=== PATIENT | female | born 1980 | race Caucasian/White ===

== ENCOUNTER → 2018-04-05 15:45 | Outpatient (CLI) | payer OTHER, SELFPAY ==
[2018-04-11 11:32] LABS: HPV APTIMA, High Risk Negative (Negative)
== END ==
PROVIDERS: Visit Provider Obstetrics & Gynecology
DX: Z12.4 Encounter for screening for malignant neoplasm of cervix (principal)
CPT/HCPCS: 88175; G0145

== ENCOUNTER → 2019-04-11 14:25 | Outpatient (CLI) | payer OTHER, SELFPAY ==
[2015-03-23 13:20] VITALS: BMI 31.0
[2019-04-17 13:41] LABS: HPV APTIMA, High Risk Negative (Negative)
== END ==
PROVIDERS: Visit Provider Obstetrics & Gynecology
DX: Z12.4 Encounter for screening for malignant neoplasm of cervix (principal)
CPT/HCPCS: 87624; 88175; G0145

== ENCOUNTER → 2019-04-18 09:33 | Outpatient (CLI) | payer OTHER, SELFPAY ==
[2015-03-23 13:20] VITALS: BMI 31.0
[2019-04-18 10:15] LABS: Hemoglobin A1c 6.5 % (4.2-6.3)
[2019-04-18 10:25] LABS: Glucose 155 mg/dL (74-106)
== END ==
PROVIDERS: Family Provider Internal Medicine; PCP Internal Medicine; Referring Provider Obstetrics & Gynecology; Visit Provider Obstetrics & Gynecology
DX: Z86.32 Personal history of gestational diabetes (principal)
CPT/HCPCS: 36415; 82947; 83036; 83525

== ENCOUNTER 2019-06-06 09:30 | Outpatient (RCR) | payer SELFPAY | END 2019-06-10 23:59 | disposition home or self-care (01) | LOC: NS 09:30 | PROVIDERS: Family Provider Internal Medicine; PCP Internal Medicine; Visit Provider Internal Medicine | DX: Z71.3 Dietary counseling and surveillance (principal); E11.65 Type 2 diabetes mellitus with hyperglycemia | CPT/HCPCS: 97802; G0108 ==

== ENCOUNTER 2019-07-10 09:59 | Outpatient (RCR) | payer OTHER, SELFPAY ==
[2015-03-23 13:20] VITALS: BMI 31.0
== END 2019-07-11 23:59 ==
LOC: NS 09:59
PROVIDERS: Family Provider Internal Medicine; PCP Internal Medicine; Visit Provider Internal Medicine
DX: Z71.3 Dietary counseling and surveillance (principal); E11.65 Type 2 diabetes mellitus with hyperglycemia
CPT/HCPCS: 97803

== ENCOUNTER 2019-08-08 09:30 | Outpatient (RCR) | payer OTHER, SELFPAY ==
[2015-03-23 13:20] VITALS: BMI 31.0
== END 2019-08-11 23:59 ==
LOC: NS 09:30
PROVIDERS: Family Provider Internal Medicine; PCP Internal Medicine; Visit Provider Internal Medicine
DX: Z71.3 Dietary counseling and surveillance (principal); E11.65 Type 2 diabetes mellitus with hyperglycemia
CPT/HCPCS: 97803; G0109

== ENCOUNTER 2019-08-22 09:30 | Outpatient (RCR) | payer OTHER, SELFPAY ==
[2015-03-23 13:20] VITALS: BMI 31.0
== END 2019-09-09 23:59 ==
LOC: NS 09:30
PROVIDERS: Family Provider Internal Medicine; PCP Internal Medicine; Visit Provider Internal Medicine
DX: Z71.3 Dietary counseling and surveillance (principal); E11.65 Type 2 diabetes mellitus with hyperglycemia
CPT/HCPCS: 97803; G0109

== ENCOUNTER 2019-10-10 15:00 | Outpatient (RCR) | payer OTHER, SELFPAY ==
[2015-03-23 13:20] VITALS: BMI 31.0
== END 2019-10-10 23:59 ==
LOC: NS 15:00
PROVIDERS: Family Provider Internal Medicine; PCP Internal Medicine; Visit Provider Internal Medicine
DX: Z71.3 Dietary counseling and surveillance (principal); E11.65 Type 2 diabetes mellitus with hyperglycemia
CPT/HCPCS: 97803; 99201; G0109; G0463

== ENCOUNTER 2019-11-07 14:57 | Outpatient (RCR) | payer OTHER, SELFPAY ==
[2015-03-23 13:20] VITALS: BMI 31.0
== END 2019-11-09 23:59 ==
LOC: NS 14:57
PROVIDERS: Family Provider Internal Medicine; PCP Internal Medicine; Visit Provider Internal Medicine
DX: Z71.3 Dietary counseling and surveillance (principal); E11.65 Type 2 diabetes mellitus with hyperglycemia
CPT/HCPCS: 97803

== ENCOUNTER 2019-12-05 13:38 | Outpatient (RCR) | payer OTHER, SELFPAY ==
[2015-03-23 13:20] VITALS: BMI 31.0
== END 2019-12-10 23:59 ==
LOC: NS 13:38
PROVIDERS: Family Provider Internal Medicine; PCP Internal Medicine; Visit Provider Internal Medicine
DX: Z71.3 Dietary counseling and surveillance (principal); E11.65 Type 2 diabetes mellitus with hyperglycemia
CPT/HCPCS: 97803

== ENCOUNTER 2020-01-04 09:30 | Outpatient (RCR) | payer OTHER, SELFPAY ==
[2015-03-23 13:20] VITALS: BMI 31.0
== END 2020-01-09 23:59 ==
LOC: DC 09:30
PROVIDERS: Family Provider Internal Medicine; PCP Internal Medicine; Visit Provider Internal Medicine
DX: Z71.3 Dietary counseling and surveillance (principal); E66.9 Obesity, unspecified; E11.65 Type 2 diabetes mellitus with hyperglycemia
CPT/HCPCS: 97803; G0109

== ENCOUNTER 2020-01-16 09:28 | Outpatient (RCR) | payer OTHER, SELFPAY ==
[2015-03-23 13:20] VITALS: BMI 31.0
== END 2020-02-09 23:59 ==
LOC: NS 09:28
PROVIDERS: Family Provider Internal Medicine; PCP Internal Medicine; Visit Provider Internal Medicine
DX: Z71.3 Dietary counseling and surveillance (principal); E11.65 Type 2 diabetes mellitus with hyperglycemia
CPT/HCPCS: 97803

== ENCOUNTER 2020-02-27 10:01 | Outpatient (RCR) | payer OTHER, SELFPAY ==
[2015-03-23 13:20] VITALS: BMI 31.0
== END 2020-03-11 23:59 ==
LOC: NS 10:01
PROVIDERS: Family Provider Internal Medicine; PCP Internal Medicine; Visit Provider Internal Medicine
DX: Z71.3 Dietary counseling and surveillance (principal); E66.9 Obesity, unspecified; E11.65 Type 2 diabetes mellitus with hyperglycemia
CPT/HCPCS: 97803

== ENCOUNTER 2020-04-01 13:00 | Outpatient (RCR) | payer OTHER, SELFPAY ==
[2015-03-23 13:20] VITALS: BMI 31.0
== END 2020-04-01 23:59 | disposition home or self-care (01) ==
LOC: NS 13:00
PROVIDERS: Family Provider Internal Medicine; PCP Internal Medicine; Visit Provider Internal Medicine
DX: Z71.3 Dietary counseling and surveillance (principal); E11.65 Type 2 diabetes mellitus with hyperglycemia
CPT/HCPCS: 97803

== ENCOUNTER → 2023-01-21 | Outpatient (CLI) | payer OTHER, SELFPAY ==
--- NOTE | 2023-01-21 14:53 | BI_ITS ---
MAMMOGRAPHY - BILATERAL SCREENING REASON FOR EXAM: Female, 42 years old. Routine annual screening examination. PERTINENT HISTORY: Aunt with breast cancer. TECHNIQUE: Digital bilateral breast lenka (3D mammographic acquisition) in the CC and MLO projections. 2-D mediolateral oblique (MLO) and craniocaudad (CC) views of both breasts were obtained. CAD: Full Field Digital Mammography with Computer Added Detection was performed. COMPARISON: Comparison is made with prior examination dated April 03, 2011. FINDINGS: Breast Composition: The breasts are heterogeneously dense, which may obscure small masses. There is a 1.9 cm x 2.2 cm well-defined nodule in the central retroareolar region of the right breast. Adjacent to this, there is a 8.6 mm x 5.9 mm well-defined nodule. These are essentially unchanged as compared to prior study. Correlation with ultrasound is recommended. No other significant abnormalities are identified. There has been no significant change since the prior study. BI/SCRN MAMM (CAD)W/LENKA BILAT IMPRESSION: Stable bilateral screening mammogram. Correlation with ultrasound is recommended. ASSESSMENT CATEGORY: BIRADS Category 0: Incomplete. Need additional imaging evaluation. A letter regarding these results will be sent to the patient by the facility within 30 days. Approximately 10% of breast cancers are not detected by mammography. A normal mammogram should not delay biopsy of a clinically suspicious abnormality. [id number] Electronically Signed: Cooper Mejia MD at 8:33 EDT ,
== END | disposition home or self-care (01) ==
LOC: OPBI 14:51
PROVIDERS: PCP Internal Medicine; Referring Provider Internal Medicine; Visit Provider Internal Medicine
DX: Z12.31 Encounter for screening mammogram for malignant neoplasm of breast (principal)
CPT/HCPCS: 77063; 77067

== ENCOUNTER → 2023-01-27 | Outpatient (CLI) | payer OTHER, SELFPAY ==
--- NOTE | 2023-01-27 14:26 | US_ITS ---
STUDY: ULTRASOUND BREAST - RIGHT REASON FOR EXAM: Female, 42 years old. Abnormal mammogram TECHNIQUE: Axial and longitudinal images of the RIGHT breast were performed with a high resolution ultrasound transducer. # OF IMAGES: 32 COMPARISON: 01/21/2023 FINDINGS: RIGHT Breast: Focused upper outer quadrant right breast ultrasound performed. Dense fibroglandular tissue noted. 2 separate hypoechoic solid nonshadowing nodules noted at 11 and 12:00. Larger measures 2.1 x 2.0 x 1.4 cm. Smaller measures 1.1 x 0.9 x 0.6 cm. Both show one ying of vascularity with Doppler analysis. Short-term 3-6 month follow-up is recommended to ensure stability. If a change in size is noted in the interim, biopsy would be recommended. 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 Short-term 3-6 month follow-up recommended to assess stability ASSESSMENT CATEGORY: BIRADS Category 3: Probably Benign - Short-Interval Follow-up Suggested. A letter regarding these results will be sent to the patient by the facility within 30 days. Electronically Signed: Ayan Yun MD at 8:37 EDT ,
== END | disposition home or self-care (01) ==
LOC: OPUS 14:25
PROVIDERS: PCP Internal Medicine; Referring Provider Internal Medicine; Visit Provider Internal Medicine
DX: R92.8 Other abnormal and inconclusive findings on diagnostic imaging of breast (principal)
CPT/HCPCS: 76642

== ENCOUNTER → 2023-05-14 | Outpatient (CLI) | payer OTHER, SELFPAY ==
--- NOTE | 2023-05-14 08:50 | US_ITS ---
STUDY: ULTRASOUND BREAST - RIGHT REASON FOR EXAM: Female, 42 years old. Six-month follow-up examination. TECHNIQUE: Axial and longitudinal images of the RIGHT breast were performed with a high resolution ultrasound transducer. # OF IMAGES: 23 COMPARISON: Comparison is made with prior sonogram dated January 27, 2023 and September 14, 2011. FINDINGS: RIGHT Breast: There is a 2 cm x 2 cm x 1.7 cm hypoechoic heterogeneous nodule at the 12:00 position of the breast at 1 cm from the nipple. This is unchanged. This most likely represents a fibroadenoma. Increased blood flow is seen. There is also evidence of a 1.1 cm x 0.8 cm x 0.7 cm hypoechoic heterogeneous solid nodule with increased blood flow at the 11:00 position breast ultrasound from nipple. This is unchanged as well. US/Breast Limited Unilateral IMPRESSION: Stable examination suggestive of fibroadenomas. Six-month follow-up is recommended. ASSESSMENT CATEGORY: BIRADS Category 3: Probably Benign - Short-Interval Follow-up Suggested. A letter regarding these results will be sent to the patient by the facility within 30 days. Electronically Signed: Cooper Mejia MD at 14:14 EDT ,
== END | disposition home or self-care (01) ==
PROVIDERS: PCP Internal Medicine; Referring Provider Internal Medicine; Visit Provider Internal Medicine
DX: R92.8 Other abnormal and inconclusive findings on diagnostic imaging of breast (principal)
CPT/HCPCS: 76642

== ENCOUNTER → 2023-11-12 | Outpatient (CLI) | payer OTHER, SELFPAY ==
[2023-11-17 15:09] LABS: HPV APTIMA, High Risk Negative (Negative)
== END | disposition home or self-care (01) ==
LOC: LABSPEC 16:50
PROVIDERS: PCP Internal Medicine; Referring Provider Advanced Practice Midwife; Visit Provider Advanced Practice Midwife
DX: Z12.4 Encounter for screening for malignant neoplasm of cervix (principal)
CPT/HCPCS: 87624; 88175; G0145

== ENCOUNTER → 2023-11-22 | Outpatient (CLI) | payer OTHER, SELFPAY ==
--- NOTE | 2023-11-22 09:00 | US_ITS ---
STUDY: ULTRASOUND BREAST - RIGHT REASON FOR EXAM: Female, 43 years old. Short interval follow-up TECHNIQUE: Axial and longitudinal images of the RIGHT breast were performed with a high resolution ultrasound transducer. # OF IMAGES: 20 COMPARISON: 05/14/2023 FINDINGS: RIGHT Breast: Heterogeneous background echotexture. At 12:00, 1 cm from the nipple, ultrasound demonstrates an interval increase in size (2.5 cm from 2.0 cm) of the oval parallel microlobulated hypoechoic mass with no posterior features not consistent with a simple cyst and therefore ultrasound-guided vacuum-assisted core biopsy is recommended.: US/Breast Limited Unilateral IMPRESSION: Enlarging hypoechoic mass and ultrasound-guided vacuum-assisted core biopsy is recommended. ASSESSMENT CATEGORY: BIRADS Category 4: Suspicious. Biopsy Should Be Considered. A letter regarding these results will be sent to the patient by the facility within 30 days. Electronically Signed: Jaiden Whalen MD at 11:47 EDT ,
--- NOTE | 2023-11-22 09:20 | BI_ITS ---
MAMMOGRAPHY - BILATERAL DIAGNOSTIC REASON FOR EXAM: Female, 43 years old. abnormal mammogram right breast PERTINENT HISTORY: Non-contributory. TECHNIQUE: Digital examination. Mediolateral oblique (MLO) and craniocaudad (CC) views of both breasts were obtained. CAD: CAD was performed on this study. COMPARISON: 01/21/2023 FINDINGS: Breast Composition: The breasts are heterogeneously dense, which may obscure small masses. There is no change in a 2.5 cm oval obscured equal density mass in the upper outer quadrant right breast at mid depth and ultrasound is recommended for further evaluation. No dominant mass left breast. No suspicious calcifications. No other significant abnormalities are identified. BI/DIAG MAMM W/CAD, BILAT IMPRESSION: Further ultrasonographic evaluation recommended, as described above. ASSESSMENT CATEGORY: BIRADS Category 0: Incomplete. Need additional imaging evaluation. A letter regarding these results will be sent to the patient by the facility within 30 days. FOLLOW UP RECOMMENDATION: Ultrasound Recommended. (I) Approximately 10% of breast cancers are not detected by mammography. A normal mammogram should not delay biopsy of a clinically suspicious abnormality. Electronically Signed: Jaiden Whalen MD at 9:53 EDT ,
== END | disposition home or self-care (01) ==
LOC: OPUS 09:00
PROVIDERS: PCP Internal Medicine; Referring Provider Advanced Practice Midwife; Visit Provider Advanced Practice Midwife
DX: R92.8 Other abnormal and inconclusive findings on diagnostic imaging of breast (principal)
CPT/HCPCS: 76642; 77062; 77066; G0279

== ENCOUNTER → 2023-11-26 | Outpatient (CLI) | payer OTHER, SELFPAY ==
--- NOTE | 2023-11-26 10:00 | BRBX_PTH ---
PATIENT: LADONNA LEYVA [id number] AGE/SX: 43/F ROOM: RE11/26/[address]: Dr. Wilda Ribeiro MD : 1980 BED: DIS: 11/26/2023 SPEC #: [id number] RECD: 11/26/23 11:19 STATUS: ARNOL REQ #: [id number] EFRAIN: 11/26/23 10:[address]: Wilda Ribeiro DEPT: SURGICAL PATHOLOGY RECD BY: Sangeeta Slaughter ENTERED: 11/26/23 12:10 SP TYPE: BREAST BX OTHR DR: Dr. Tamara Pearson, DO Tissues: Right breast, NOS Procedures: Surgery Specimen Level IV HEADER OPERATION: Biopsy of right breast mass PRE-OP DIAGNOSIS: Biopsy of right breast mass TISSUE SUBMITTED: Right breast mass tissue at 12o'clock, 1cm from the nipple MICROSCOPIC DIAGNOSIS Right breast at 12o'clock, core biopsy: Fibroadenoma. AM/mr 11/29/23 MICROSCOPIC DESCRIPTION Slides are reviewed. GROSS DESCRIPTION Received in fixative is one container labeled with the patient's name and designated Right breast mass tissue. The specimen consists of multiple irregular fragments of juárez-yellow fibroadipose tissue that in aggregate measure 1.0 x 0.5 x 0.1 cm. The specimen is totally submitted in one cassette. KELVIN/ 11/26/2023 TC:5 CPT:67590
== END | disposition home or self-care (01) ==
LOC: LABSPEC 11:37
PROVIDERS: PCP Internal Medicine; Referring Provider Surgery; Visit Provider Surgery
DX: D24.1 Benign neoplasm of right breast (principal)
CPT/HCPCS: 88305

== ENCOUNTER 2023-12-07 07:52 | Day surgery (SDC) | payer OTHER, SELFPAY ==
[2023-12-07 08:21] LABS: Internal QC Validated? YES +Cl - CLEAR BKGD; Pregnancy, Urine Negative Negative
[2023-12-07 08:22] VITALS: BP 139/85; PULSE 80; RESP 16; TEMP 37.4; O2SAT 99; BMI 28.8
[2023-12-07 08:22] LABS: Record Kit Lot#,Urine Preg HCG0000735774
[2023-12-07] MEDS: Lactated Ringers 1,000 ML 15 ML IV (08:35)
[2023-12-07 08:36] LABS: Bedside Glucose 238 mg/dL (74-106)
--- NOTE | 2023-12-07 09:23 | HP.PCM_ITS ---
History and Physical Date of Admission: 12/07/23 Date of Service: 11/26/23 MR#: [id number] Acct: [id number] Name: LADONNA LEYVA Rep #: [id number] : 1980 Provider: Dr. Wilda Ribeiro MD Age/Sex: 43/F Location: [facility] Status: Signed Intake Vital Signs 11/11/2413:41 Height 5 ft 1 in Weight: 153 lb BMI 28.9 BP 137/88 H Intake Visit Reasons: BIRADS 4 Chief Complaint: right breast mass [employer] Et[employer] Developer Required: No Is patient in pain?: No Allergies No Known Allergies Allergy (Verified 11/26/23 09:32) Medications ?Medication ?Instructions ?Recorded ?Confirmed ?Type levothyroxine 50 mcg tablet 50 mcg PO QDAY 11/26/23 11/26/23 History metformin 500 mg tablet 500 mg PO BID 11/26/23 11/26/23 History multivitamin 1 tab PO DAILY 11/26/23 11/26/23 History rosuvastatin 10 mg tablet 10 mg PO QHS 11/26/23 11/26/23 History PFSH Medical History (Updated 11/26/23 @ 11:[address] Wilda Ribeiro MD) Diabetes type 2, controlled Hypothyroid High cholesterol Breast lump in female Surgical History (Updated 11/26/23 @ 09:33 by Kami Tena) S/P breast biopsy [place] teeth removed H/O dilation and curettage Family History (Updated 11/12/23 @ 14:36 by Sruthi Stokes MA) Father Diabetes Heart diseaseMother Diabetes Social History (Updated 11/12/23 @ 14:37 by Sruthi Stokes MA) adopted: No household members: family current occupational status: employed and other current occupation: [employer] current occupational exposures/hazards: No pets and animals: Yes history of recent travel: No sexually active: Yes Smoking Status: Never smoker alcohol intake: never substance use type: does not use caffeine: Yes cathi/yarsanism: Scientology seatbelt use: always do you feel safe at home: Yes additional social history: Spouse - Bishop , Children - Duy, Monster, Gabriela HPI HPI HPI: 43-year-old female presents due to right breast mass. Patient states that her was previously seen on last year's mammography and she had been getting follow- up ultrasounds. Repeat ultrasound this year showed a slightly larger in size and given a BI-RADS 4. At 12:00 1 cm from the nipple increased from 2 cm to 2.5 cm hypoechoic mass. Patient states she is able to feel denser tissue in that area but denies any pain or any other changes she is able to tell. Patient's age of menses 13, age of of first child 26, family history of breast cancer maternal aunt, previous breast biopsy in the right in 2010 patient is unsure exactly where this was done at denies any nipple discharge and states it was benign. According to mammography no evidence of clip being left. ROS General General: No weight change, appetite, fatigue, colon cancer or breast cancer HEENT HEENT: No difficulty swallowing, eye injury, eye surgery, swollen glands or hoarseness Endo Endocrine: Yes thyroid disease and diabetes mellitus; No thyroid cancer, Hair loss, heat intolerance or cold intolerance Skin Skin: No rash or changing moles Breast Breast: Yes right breast lump and abnormal US; No left breast lump, nipple discharge, breast pain, abnormal mammogram or breast enlargement Musc Musculoskeletal: No back problems, arthritis, rheumatoid arthritis, gout or joint pain Cardio Cardiovascular: No murmur, pacemaker, heart disease, atrial fibrillation, high blood pressure, heart attack, heart stent, palpitations, shortness of breat with exertion or chest pain Psych Psychiatric: No depression, anxiety or hearing voices Resp Respiratory: No shortness of breath, No sleep apnea, No cough, No COPD, No asthma, No emphysema and No wheezing Gastro Gastrointestinal: No abdominal pain, No nausea or vomiting, No diarrhea, No constipation, No blood in stool, No acid reflux, No hemorrhoids, No ulcers, No gallbladder problem and No black,tarry stools Bruce Hematologic: No blood thinners, No blood disorders, No bleeding, No anemia and No blood clots Neuro Neurologic: No numbness and No tingling Exam Const General: cooperative, healthy appearing and no acute distress [facility] Head: normal to inspection Chest Other: Breast inspection: Symmetric bilaterally Right breast: Fibroglandular tissue, about 2 cm x 1.5 cm mass 11-12:00 1 cm from the nipple, no nipple discharge or pain, no change in overlying skin Left breast: Fibroglandular tissue, no masses on exam, no nipple discharge or pain, no change in overlying skin No axillary or supraclavicular adenopathy bilaterally Resp Effort & Inspection: normal respiratory effort Cardio Rate: regular rate GI Inspection: non-distended Palpation: soft Skin General: no rashes or lesions noted Neuro General: patient oriented x3 Extrem General: no clubbing, cyanosis or edema Psych Affect: normal affect Office Procedures Biopsy Provider Documentation Reviewed the ultrasound and mammography with patient and discussed the need for biopsy. Reviewed the procedure of biopsy with a core biopsy device. A marker clip will be placed to identify the location. Patient has been counseled to the risks/benefits of the procedure. I have explained the risks of the surgery, including but not limited to: infection, bleeding, injury to any blood vessels/nerves, scar tissue, missing the lesion, further surgery, etc. - the patient understands and agrees to proceed. I have answered all of the patient's questions to her satisfaction and she has no further questions. Signed consent is completed. Procedure: ultrasound-guided core biopsy Description of procedure: Patient was brought into the ultrasound room in the right breast was marked. A timeout was completed verifying correct patient, procedure, site, specially, prior to beginning procedure. The right breast was prepped and draped in usual sterile fashion and using local anesthesia was obtained with 1% lidocaine with epi. The lesion was located with the ultrasound at 12:00 1 cm from nipple. Small incision was made with 11 blade to introduced the BARD MaxCore through the skin. Under ultrasound guidance multiple core samples were obtained using then 14-gauge BARD MaxCore and sent in formalin for pathology. The Bard dual ultra-clip was then deployed into the biopsy cavity under ultrasound guidance and a picture was taken. Upon completion procedure hemostasis was obtained and a Steri-Strip and OpSite were placed. The patient tolerated the procedure well and left the office in good condition. Alert Tapering Machine Operator Yes Biopsy Breast Biopsy: [id number] US Guidance Procedure Time Out Time Out Informed consent given: Yes Consent signed: Yes Time out checklist: patient, procedure, site marked/identified, positioning of patient, supplies available, allergies confirmed and team agrees on procedure Time out staff in room: Yes Time out verified: Yes Time out date: 11/26/23 Time out time: 10:00 Assessment and Plan Assessment and Plan (1) Breast mass, right: Status: Acute Plan Patient tolerated biopsy well in office. Will call patient with pathology results. Discussed with patient that since this has enlarged in size not unreasonable to get this excised even if it were just a fibroadenoma question if it could also possibly be a phyllodes which I would recommend excision at this they typically continue to get larger. Patient is agreeable with plan. Wilda Ribeiro M.D. Pager: [phone] [facility] [address] [place] [address], [facility], [address] [place] [address] Office: [phone] Coding Level of Care Code Attention Tapering Machine Operator Diagnoses Breast mass, right N63.10 CPT Codes Biopsy - Breast Biopsy: 99175 US Guidance (32572) 11/26/23 1129 <Electronically signed by Wilda Ribeiro MD> Date Wilda Ribeiro MD
[2023-12-07] MEDS: Cefazolin 2 GM in 0.9% Normal Saline (100mL Bag) 100 ML IV (10:01)
--- NOTE | 2023-12-07 10:42 | BREAST_PTH ---
PATIENT: LADONNA LEYVA LOC: [facility] U#:[id number] AGE/SX: 43/F ROOM: RE12/07/[address]: Dr. Wilda Ribeiro MD : 1980 BED: DIS: 12/07/2023 SPEC #: [id number] RECD: 12/07/23 11:00 STATUS: ARNOL VALERI #: [id number] EFRAIN: 12/07/23 10:[address]: Wilda Ribeiro DEPT: SURGICAL PATHOLOGY RECD BY: Sangeeta Slaughter ENTERED: 12/07/23 13:20 SP TYPE: BREAST OTHR DR: Dr. Tamara Pearson, DO Tissues: Right breast, NOS Procedures: Surgery Specimen Level V HEADER OPERATION: Ultrasound needle localization right excision, breast biopsy PRE-OP DIAGNOSIS: Breast mass, right TISSUE SUBMITTED: Right breast masses- long stitch lateral, short stitch superior MICROSCOPIC DIAGNOSIS Right breast mass, lumpectomy: Fibroadenoma. Mild fibrocystic change. See comment. PRIMITIVO/ 12/10/2023 COMMENT The lesion extends focally to the anterior and posterior margins of excision. Clinical correlation is suggested. MICROSCOPIC DESCRIPTION Slides are reviewed. GROSS DESCRIPTION Received in fixative is one container labeled with the patient's name and designated Right breast mass. The specimen consists of two irregular fragments of rubbery juárez-yellow soft tissue. The smaller fragment measures 4.0 x 3.5 x 1.6cm and contains a wire and two sutures. The other fragment measures 4.5 x 3.5 x 1.5cm and contains two sutures and no wire. The specimen is inked as follows: anterior - yellow, posterior - black, superior - blue, inferior - green, medial - red and lateral - orange. Serial sections of the first fragment reveal humoginous yellow-white cut surfaces. No distinct mass lesion is identified. The specimen is serially sectioned and totally submitted in cassettes 1-6. Serial sections of the second fragment reveal rubbery white-juárez cut surfaces. No mass lesions are identified. The specimen is serially sectioned and totally submitted in cassettes 8-12. NOTE: The specimen is submitted after additional fixation. PRIMITIVO/ 12/08/2023 TC:1 CPT:15106
--- NOTE | 2023-12-07 10:48 | PCM.OPRPT ---
Report of Operation Date of Procedure: 12/07/23 Pre-Operative Diagnosis: Right breast fibroadenoma Post-Operative Diagnosis: Same Surgery/Procedure Performed:: Excision of right breast fibroadenoma with ultrasound needle localization Surgeon: Wilda Ribeiro health care marketing specialist: Michael Mays Type of Anesthesia: General/Supplemental Anesthesiologist: Zeferino Rudolph Special Medications: Ancef 2 g IV x 1 Specimen's removed: Right breast lumpectomy?fibroadenoma Estimated Blood Loss (mL): < 10 cc Fluids Replaced: 1000 cc Description of Procedure: Patient was brought to operating placed spinal operating table. Timeout was completed verifying correct patient, procedure, site, positioning, special, prior began procedure. General anesthesia was induced. Patient's right breast was prepped draped in a sterile fashion. Ultrasound guided needle localization with Kopan needle was completed with the wire just lateral to the fibroadenoma. A curvilinear incision was planned in such a way as to minimize the amount of dissection to reach the mass. Flaps were raised in the location of the wire confirmed. The wire was delivered into the wound. 2 silk [id number] stay suture was placed around the wire and used for traction. Dissection was then taken down circumferentially with electrocautery, taking care to include the entire localization needle and wide margin of grossly normal tissue. The specimen and entire localizing wire were removed. The specimen was oriented and sent to radiology with the localization studies. Confirmation was received that the entire target lesion had been resected. The cavity was irrigated. Hemostasis was obtained with electrocautery. The breast incision was closed with interrupted sutures of 3-0 Vicryl and subcuticular sutures of 4-0 Monocryl. No attempt was made to close the space. A dressing of fluff gauze and supportive bra placed. The patient tolerated procedure well was taken to the postanesthesia care in stable condition. Complications none
--- NOTE | 2023-12-07 10:50 | DCINST_ITS ---
Discharge Instructions Diet Discharge Diet: No restrictions Activity Discharge Activity: May Not Drive (for 2-3 days or while taking narcotic pain meds.) May shower in (days): 1 Lifting Restrictions: 15 pounds for 1 week. Dressing / Incision Call your doctor if your incision/area has: Continuous Slow Oozing, Sudden Increased Bleeding, Increased Pain/ Swelling and Increased Redness Call your doctor if you observe: Fever of 101 or Higher Suture Line Care: Avoid Pulling/Pushing and Avoid Pinching/Bending Remove Dressing in: 1 day Additional Dressing/Incision Instructions:: Remove bulky dressing tomorrow. May leave op-site dressing for 3-4 days. Okay to remove Steri-Strips from the breast incision in 7 to 10 days. Follow Up Care Please Follow Up With: Wilda Ribeiro MD When: Please call [phone] for an appointment to be seen in 2 week. Test Results: Test results from this visit will be discussed in further detail at your follow- up appointment, if applicable. Discharge Plan Admission Attending Provider: Wilda Ribeiro Primary Care Provider: Tamara Pearson Instructions Print Language: Mongolian Discharge Orders/Prescriptions Prescriptions: New tramadol 50 mg tablet 50 mg PO Q6H PRN (Reason: pain) Qty: 10 0RF Continued rosuvastatin 10 mg tablet 10 mg PO QHS levothyroxine 50 mcg tablet 50 mcg PO QDAY metformin 500 mg tablet 500 mg PO BID multivitamin Tablet 1 tab PO DAILY Probiotic 3 billion cell capsule 3,000 mmu cells PO DAILY Rx Instructions: administer with a meal Referrals / Follow Up: Tamara Pearson DO [Primary Care Provider] - Disposition Disposition (needs filled in before D/C Order can be placed): Home, Self Care
--- NOTE | 2023-12-07 10:51 | BI_ITS ---
SURGICAL BREAST SPECIMEN RADIOGRAPH CLINICAL: Document presence of tissue clip marker in biopsy specimen. FINDINGS: Specimen shows presence of tissue clip marker. Electronically Signed: Cooper Mejia MD at 12:35 EDT , BI/Breast Biopsy Specimen IMPRESSION: undefined
[2023-12-07] MEDS: Bupiv/Epi 0.25% 30 ML Vial (10:57)
[2023-12-07 11:10] VITALS: BP 125/89; BP 139/85; PULSE 96; RESP 16; TEMP 36.2; O2SAT 96
[2023-12-07 11:15] VITALS: BP 112/74; BP 139/85; PULSE 83; RESP 16; O2SAT 98
[2023-12-07 11:20] VITALS: BP 125/80; BP 139/85; PULSE 76; RESP 16; O2SAT 100
[2023-12-07 11:25] VITALS: BP 112/77; BP 139/85; PULSE 76; RESP 18; TEMP 36.6; O2SAT 99
[2023-12-07 11:38] LABS: Bedside Glucose 136 mg/dL (74-106)
[2023-12-07 13:06] VITALS: BP 121/79; BP 139/85; PULSE 73; RESP 14; TEMP 36.6; O2SAT 100
[2023-12-07 14:20] LABS: Bedside Glucose 131 mg/dL (74-106)
== END 2023-12-07 13:07 | disposition home or self-care (01) ==
LOC: SDC 07:52 → AC 07:53
PROVIDERS: Anesthesiology; PCP Internal Medicine; Referring Provider Surgery; Visit Provider Surgery
PROC: (CPT 19125; principal; 2023-12-07 09:15)
DX: D24.1 Benign neoplasm of right breast (principal); E11.9 Type 2 diabetes mellitus without complications; E78.00 Pure hypercholesterolemia, unspecified; E03.9 Hypothyroidism, unspecified; Z79.84 Long term (current) use of oral hypoglycemic drugs; Z79.899 Other long term (current) drug therapy
CPT/HCPCS: 19125; 00400; 76098; 81025; 82962; 88307; A4648; J7120; J2405

== ENCOUNTER → 2025-02-05 | Outpatient (CLI) | payer OTHER, SELFPAY ==
--- NOTE | 2025-02-05 07:27 | BI_ITS ---
EXAM: SCRN MAMM (CAD)W/LENKA BILAT DATE: 02/05/2025 CLINICAL HISTORY: F, Age 44 y/o , SCRN MAMM (CAD)W/LENKA BILAT History of prior right excisional breast biopsy. Aunt with breast cancer. TECHNIQUE: SCRN MAMM (CAD)W/LENKA BILAT COMPARISON: Prior exam(s) dated November 22, 2023.. FINDINGS: TISSUE DENSITY: The breasts are extremely dense, which lowers the sensitivity of mammography. Bilateral Breast Mammographic Findings: No significant masses, calcifications or other abnormalities are identified. Status post resection of the right breast nodule. BI/SCRN MAMM (CAD)W/LENKA BILAT IMPRESSION: Status post resection of the right breast nodule. OVERALL FINAL ASSESSMENT BI-RADS 1: NEGATIVE. RECOMMENDATION: Routine annual follow-up in 1 Year A letter with findings and recommendations will be mailed to the patient. Reading Location: [id number]
== END | disposition home or self-care (01) ==
LOC: OPBI 07:17
PROVIDERS: PCP Internal Medicine; Referring Provider Internal Medicine; Visit Provider Internal Medicine
DX: Z12.31 Encounter for screening mammogram for malignant neoplasm of breast (principal)
CPT/HCPCS: 77063; 77067

== ENCOUNTER → 2025-06-20 | Outpatient (CLI) | payer OTHER, SELFPAY ==
[2025-06-20 08:44] LABS: Mucous, Urine 0 SEEN /hpf (<or=2+)
[2025-06-20 10:21] LABS: Hematocrit 40.9 % (37-47); Hemoglobin 13.7 g/dL (12.0-15.0); Immature Granulocytes Count 0.030 X10^3/uL (0.0-0.0); Mean Corp Hgb Conc 33.5 g/dL (32-36); Mean Corpuscular Volume 89.1 fL (81-99); Mean Platelet Vol. 8.9 fl (6.2-12.0); NRBC Flagged by Analyzer 0 % (0-5); Platelet Count 352 K/mm3 (150-450); RBC Distribution Width CV 12.2 % (11.6-14.6); RBC Distribution Width SD 39.9 fl (35.1-43.9); Red Blood Count 4.59 M/mm3 (4.2-5.4); White Blood Count 5.9 K/mm3 (4.4-11.0)
[2025-06-20 10:22] LABS: Color, Urine Yellow (Yellow); Glucose, Dipstick Normal (Normal); Ketone-Dipstick Negative (Negative); Leukocyte Esterase-Dipstick Negative /ul (Negative); Nitrite-Dipstick Negative (Negative); Occult Blood-Urine 10 /ul (Negative); Protein-Dipstick 15 mg/dl (Negative); Specific Gravity, Urine 1.010 (1.002-1.030); Urine Bilirubin Dipstick Negative (Negative)
[2025-06-20 10:36] LABS: Red Blood Cells-Urine 0-5 SEEN /hpf (0-5); Squamous Epithelial Cells - UA 0-5 SEEN /hpf (5-10)
[2025-06-20 10:40] LABS: Creatinine, Urine (random) 134.00 mg/dL (28.00-217.00); Microalbumin,Random Urine < 12.0 mg/L (<20 mg/L)
[2025-06-20 11:04] LABS: AST(SGOT) 28 U/L (<=31); Alanine Aminotransfer ALT/SGPT 39 U/L (<=34); Albumin, Serum 4.6 g/dL (3.5-5.0); Alkaline Phosphatase 58 U/L (35-104); Anion Gap 12 (5-15); BUN 13 mg/dL (4-19); BUN/Creat Ratio 17.7 RATIO (10-20); Calcium,Total 9.2 mg/dL (7.6-11.0); Carbon Dioxide 25.3 mmol/L (21.0-32.0); Chloride 101 mmol/L (98-108); Cholesterol 151 mg/dL (<=200); Globulin 2.5 g/dL (2.2-4.2); Glucose 176 mg/dL (70-99); Low Density Lipoprotein Calc. 80 mg/dL; Potassium 4.4 mmol/L (3.3-5.1); Triglycerides 79 mg/dL; Very Low Density Lipoprotein 16 mg/dL (5-40); Vitamin D,25 Hydroxy 69.8 ng/mL (30-100); cholesterol:hdl ratio screen 2.70
== END | disposition home or self-care (01) ==
LOC: MTLAB 08:36
PROVIDERS: PCP Internal Medicine; Referring Provider Internal Medicine; Visit Provider Internal Medicine
DX: E03.9 Hypothyroidism, unspecified (principal); E11.65 Type 2 diabetes mellitus with hyperglycemia; E78.00 Pure hypercholesterolemia, unspecified; E55.9 Vitamin D deficiency, unspecified
CPT/HCPCS: 36415; 80053; 80061; 81001; 82043; 82306; 82570; 84443; 85025